=== PATIENT | female | born 1985 | race Caucasian/White ===

== ENCOUNTER 2016-10-13 11:08 | Emergency (ER) | payer MEDICAID, OTHER ==
[~2016-10-13] VITALS: Ht 170.2 cm; Wt 91.0 kg
[2016-10-13 11:11] VITALS: Ht 170.2 cm; Wt 91.0 kg
[2016-10-13 11:58] LABS: URINE BLOOD (Dip) POC Trace-intact (NEGATIVE)
[2016-10-13] MEDS ORDERED: predniSONE 20 MG TAB PO ONE (12:00)
[2016-10-13] MEDS ORDERED: VALACYCLOVIR 500 MG TAB PO ONE (12:00)
--- NOTE | 2016-10-13 13:37 | ERD ---
ER Documentation Chief Complaint Date/Time DATE: 10/13/16 TIME: 13:21 Chief Complaint LT SIDED FACIAL NUMBNESS SINCE LAST NIGHT. LOW ENERGY X3 WEEKS. ANXIETY. HPI Pleasant 31-year-old female presents to emergency department today with left- sided facial numbness progressively worsening to facial paralysis. Patient reports symptoms started at 2100 last night after she got home from school. Symptoms include left-sided face numbness, intermittent headache, and watery left eye. Patient reports she went to sleep and woke noticed that her left eye was not completely closing and that her smile was a little asymmetric. Patient denies any numbness on her tongue, difficulty swallowing or speaking, difficulty ambulating or extremity weakness Patient denies any history of neurological disorder, TIA, or CVA, patient denies any history of diabetes or heart disease. ROS All systems reviewed and are negative except as per history of present illness. Medications Home Meds Active Scripts Valacyclovir HCl (Valtrex) 1,000 Mg Tablet, 1000 MG PO TID for 7 Days, TAB Prov:DRAGAN,MELO 10/13/16 Prednisone* (Prednisone*) 20 Mg Tab, 10 MG PO DAILY for 2 Days, TAB Prov:DRAGAN,MELO 10/13/16 Prednisone* (Prednisone*) 20 Mg Tab, 20 MG PO DAILY for 2 Days, TAB Prov:DRAGAN,MELO 10/13/16 Prednisone* (Prednisone*) 20 Mg Tab, 40 MG PO DAILY for 2 Days, TAB Prov:DRAGAN,MELO 10/13/16 Prednisone* (Prednisone*) 20 Mg Tab, 60 MG PO DAILY for 5 Days, TAB Prov:DRAGAN,MELO 10/13/16 Allergies Allergies: Coded Allergies: Penicillins (Verified Allergy, Mild, 10/13/16) PMhx/Soc History of Surgery: Yes (cyst left breast ) Anesthesia Reaction: No Hx Neurological Disorder: No Hx Respiratory Disorders: Yes (asthma) Hx Cardiac Disorders: No Hx Psychiatric Problems: No Hx Miscellaneous Medical Probl: No Hx Alcohol Use: Yes (socially) Hx Substance Use: No Hx Tobacco Use: Yes Smoking Status: Light tobacco smoker Physical Exam Vitals Vital Signs Date Time Temp Pulse Resp B/P Pulse Ox O2 Delivery O2 Flow Rate FiO2 10/13/16 13:59 98.9 66 16 125/79 98 Room Air 10/13/16 11:11 98.9 95 16 139/85 98 Vital signs stable, nursing notes reviewed Physical Exam Const: No acute distress Head: Atraumatic Eyes: Conjunctivae clear, no pallor or jaundice, bilateral eyelids closed. Left eyelid unable to close tightly, I appears watery. Bilateral pupils equal round reactive to light and accommodation. ENT: Patient has asymmetric smile on the left. Tongue is midline. Mucous membranes moist Neck: Full range of motion..~ No meningismus. Resp: Clear to auscultation bilaterally Cardio: Regular rate and rhythm, no murmurs Abd: Soft, non tender, non distended. Normal bowel sounds Skin: Back: Ext: Neur: Awake and and alert, Speech is clear, pupils equal round and reactive to light and accommodation, sensation to light touch is intact bilaterally. There is no pronator drift. Finger to nose test is intact bilaterally. Reimbursement Liaison strength is 5/5. Flexion and extension is intact bilaterally Patient right eyebrow lifts , left eyebrow and moved when asked to raise eyebrows. Smile is asymmetric not lifting on left side. Psych: Normal Mood and Affect Results 24 hrs Laboratory Tests Test 10/13/16 12:01 Bedside Urine Blood Trace-intact Bedside Urine Glucose (UA) Negative Bedside Urine Ketones (LAB) Negative Bedside Urine Leukocyte Esterase (L Negative Bedside Urine Nitrite (LAB) Negative Bedside Urine Protein (LAB) Negative Bedside Urine pH (LAB) 5.5 Current Medications Medications (Trade) Dose Ordered Sig/Emily Route PRN Reason Start Time Stop Time Status Last Admin Dose Admin Prednisone (Prednisone) 60 mg ONCE ONCE PO 10/13/16 12:00 10/13/16 12:01 DC 10/13/16 12:05 Valacyclovir HCl (Valtrex) 1,000 mg ONCE ONCE PO 10/13/16 12:00 10/13/16 12:01 DC 10/13/16 12:40 Urinalysis negative for evidence of infection, urine hCG negative for evidence of . Procedures/MDM Pleasant 31-year-old female presents to emergency department today with facial numbness, asymmetric smile, watery left eye eye, and intermittent headache, patient's neurologically suggestive of unilateral peripheral facial nerve palsy , HBS grade 4, obvious weakness with movement and disfigurement at rest inability to fully close eye. High-dose corticosteroids started along with antiviral treatment. I feel the patient is stable for discharge at this time and benefit from outpatient therapy and follow-up with primary care physician. I have discussed results, examination findings, the treatment plan with the patient and family present prior to discharge. Indications for emergent reevaluation worsening of headache, or symptoms extending to include extremities., side effects of medication were also discussed. All questions were answered. Patient verbalizes understanding and agrees with plan of care. Departure Diagnosis: Primary Impression: Alegre's palsy Condition: Good Patient Instructions: Alegre's Palsy Referrals: [facility] Additional Instructions: Thank you for for coming to [facility] for your care today. Please ask your nurse or provider if you have questions about your care today and do not leave until all your questions have been answered. Please use any medications given as directed and follow-up with your doctor (or the doctor you were referred to) in the next 2-3 days. If you do not have a primary care doctor you may follow up at the [facility] [place] (listed below). You may also use motrin and tylenol as needed for fever and/or pain unless instructed otherwise by your provider or nurse. Indications for more urgent follow-up have been discussed, but you may return to the Emergency Department at ANY time for any worrisome or worsening symptoms. If you have abdominal pain, please know that no test or exam you received is perfect and you should follow up within 8 hours for continued pain. If you had any imaging studies today, such as an X-Ray or CT Scan, these studies will be reviewed later by a radiologist. You will be called if there are important findings that were not identified today, so make sure the contact information you provided at registration is correct. If you received any narcotic pain control medicine today, such as Vicodin, Morphine or Dilaudid, your coordination and judgment may be affected for a number of hours. Please do not drive or operate heavy machinery, and you may want someone to assist you at home. If you were given a prescription for narcotic medication, be aware that it is very addictive- use sparingly and only if necessary. MELO ARCHIBALD Oct 13, 2016 13:34
[2016-10-13] MEDS ORDERED: PRED20TA PO ×3 (13:39→13:41)
[2016-10-13] MEDS ORDERED: VALA10004 PO (13:42)
[2016-10-13 13:59] VITALS: BP 125/79; PULSE 66; RESP 16; TEMP 98.9
== END 2016-10-13 13:55 | disposition home or self-care (01) ==
LOC: FTE 11:08
DX: G51.0 Bell's palsy (principal); J45.909 Unspecified asthma, uncomplicated; F17.210 Nicotine dependence, cigarettes, uncomplicated
CPT/HCPCS: 81003; J7512; Z7502; Z7610; 99284

== ENCOUNTER 2018-01-31 08:01 | Emergency (ER) | END 2018-01-31 08:54 | disposition home or self-care (01) ==